=== PATIENT | female | born 1995 | race African-American/Black ===

== ENCOUNTER 2016-08-01 20:05 | Emergency (ER) | payer MEDICAID, OTHER ==
[~2016-08-01] VITALS: Ht 160 cm; Wt 49.4 kg
[~2016-08-01 20:05] MED LIST: NITROFURANTOIN100 M2 ORAL; NKM; ORAL ANESTHETIC7 GM MM
[2016-08-01 21:54] LABS: APPEARANCE,URINE CLEAR; KETONES,URINE NEGATIVE (NEGATIVE); LEUKOCYTE ESTERASE ,URINE NEGATIVE (NEGATIVE); NITRITE,URINE NEGATIVE (NEGATIVE); PH,URINE 6.5 (4.5-8.0); PROTEIN,URINE NEGATIVE (NEGATIVE); UROBILINOGEN,URINE NORMAL MG/DL (0.0-1.0)
[2016-08-01] MEDS ORDERED: ENEMA READY-TO133 ML RC (22:20)
[2016-08-01] MEDS ORDERED: COLACE100 MG ORAL (22:20)
[2016-08-01] MEDS ORDERED: ANUSOL-HC25 MG RECTAL (22:20)
[2016-08-01 22:31] VITALS: BP 107/74
[2016-08-01 22:33] VITALS: BP 107/74
--- NOTE | 2016-08-02 03:25 | Emergency Room Report ---
History of Present Illness General Chief Complaint: Abdominal Pain Source: Patient Present Illness HPI 21-year-old female presents to ED complaining of lower abdominal pain x1 day. Pain is suprapubic, sharp, 7 out of 10. Nonradiating. No other aggravating or relieving factors. Denies nausea or vomiting. Patient states she is constipated. Notes history of constipation. Notes blood in stool. Denies dysuria or hematuria. Notes history of UTI. Denies any other associated symptoms Allergies: Coded Allergies: No Known Allergies (Unverified , 06/03/14) Patient History Past Medical History: none Past Surgical History: none Pertinent Family History: none Social History: Denies: alcohol use, drug use, smoking Last Menstrual Period: Jun Now: No Immunizations: UTD Reviewed Nursing Documentation: PMH: Agreed, PSxH: Agreed Nursing Documentation-PMH Past Medical History: No Stated History Review of Systems All Other Systems: negative except mentioned in HPI Physical Exam Vital Signs Date Time Temp Pulse Resp B/P Pulse Ox O2 Delivery O2 Flow Rate FiO2 08/01/16 20:39 98.1 112 18 104/70 99 Room Air Sp02 EP Interpretation: reviewed, normal General Appearance: no apparent distress, alert, GCS 15, non-toxic Head: normocephalic Eyes: bilateral eye PERRL, bilateral eye normal inspection ENT: hearing grossly normal Neck: normal inspection Respiratory: chest non-tender, lungs clear, normal breath sounds, speaking full sentences Cardiovascular #1: regular rate, rhythm, no edema Gastrointestinal: normal bowel sounds, soft, non-distended, no guarding, no rebound, tenderness - suprapubic Rectal: deferred Genitourinary: no CVA tenderness Musculoskeletal: normal inspection Neurologic: alert, oriented x3, responsive, motor strength/tone normal, sensory intact, speech normal Psychiatric: normal inspection Skin: normal inspection Lymphatic: normal inspection Medical Decision Making Diagnostic Impression: Primary Impression: Constipation Qualified Codes: K59.00 - Constipation, unspecified ER Course Hospital Course 21-year-old female presents to ED complaining of suprapubic pain Differential diagnoses include: UTI, cystitis, pyelonephritis Clinical course Patient placed on stretcher. After initial history and physical I ordered UA, urine . UA noted to be unremarkable. Patient also complaining of constipation, blood in stool. Likely has hemorrhoids. Will treat accordingly Diagnosis -constipation Stable and discharged home with prescriptions for Rx Colace, Anusol, enema. Instructed to followup with PMD. Return to ED if symptoms recur or worsen Labs Test 08/01/16 20:45 Urine Color Pale yellow Urine Appearance Clear Urine pH 6.5 (4.5-8.0) Urine Specific [place] 1.005 (1.005-1.035) Urine Protein Negative (NEGATIVE) Urine Glucose (UA) Negative (NEGATIVE) Urine Ketones Negative (NEGATIVE) Urine Occult Blood Negative (NEGATIVE) Urine Nitrite Negative (NEGATIVE) Urine Bilirubin Negative (NEGATIVE) Urine Urobilinogen Normal MG/DL (0.0-1.0) Urine Leukocyte Esterase Negative (NEGATIVE) Urine HCG, Qualitative Negative Last Vital Signs Date Time Temp Pulse Resp B/P Pulse Ox O2 Delivery O2 Flow Rate FiO2 08/01/16 22:33 98.3 106 17 107/74 99 Room Air Status: improved Disposition: HOME, SELF-CARE Condition: Stable Scripts Hydrocortisone Acetate* (ANUSOL-HC*) 25 Mg Supp.rect 1 SUPP RECTAL TWICE A DAY, #10 SUPP Prov: KALYN KAPLAN M.D. 08/01/16 Na Phos,M-B/Na Phos,Di-Ba (ENEMA [id number]) 133 Ml Enema 133 ML RC ONCE, #1 EA Prov: KALYN KAPLAN M.D. 08/01/16 Docusate Sodium* (COLACE*) 100 Mg Capsule 100 MG ORAL THREE TIMES A DAY, #30 CAP Prov: KALYN KAPLAN M.D. 08/01/16 Referrals: [facility],REFERRING (PCP) Patient Instructions: Constipation, Adult, [id number] KALYN KAPLAN M.D. Aug 02, 2016 03:25
== END 2016-08-01 22:33 | disposition home or self-care (01) ==
LOC: EMR 20:52
DX: K59.00 Constipation, unspecified (principal); R10.30 Lower abdominal pain, unspecified
CPT/HCPCS: 81003; 81025; 99284